=== PATIENT | female | born 1965 | race Hispanic/Latino ===

== ENCOUNTER 2022-06-10 00:39 | Emergency (ER) | payer BC, SELFPAY ==
[2022-06-10 01:23] LABS: Bilirubin Negative (Negative); Blood, Urine Negative (Negative); Clarity Clear (Clear); Glucose, Urine (Dipstick) Negative (Negative); Ketone, Urine Negative (Negative); Leukocyte Negative (Negative); Nitrite Negative (Negative); Protein, Urine (Dipstick) Negative (Neg-Trace); Urobilinogen 0.2 mg/dL (Less than 2)
[2022-06-10] MEDS ORDERED: Sodium Chloride 0.9% 100 ML ONE (01:30)
[2022-06-10] MEDS ORDERED: Morphine 2 MG/ML VIAL ONE (01:30)
[2022-06-10] MEDS ORDERED: Sodium Chloride 0.9% 2,000 ML ONE (01:30)
[2022-06-10] MEDS ORDERED: Promethazine HCl 25 MG/ML VIAL ONE (01:30)
[2022-06-10 01:47] LABS: ALT (SGPT) 28 U/L (8-55); AST (SGOT) 28 U/L (5-34); Albumin 3.9 g/dL (3.5-5.0); Alkaline Phosphatase 72 U/L (40-110); Anion Gap 19 mmol/L (10-20); BUN (Urea Nitrogen) 7 mg/dL (9.8-20.1); Bilirubin, Total 0.5 mg/dL (0.2-1.2); Calc. Creatinine Clearance 0 mL/min (70-130); Calcium 8.4 mg/dL (7.8-10.44); Carbon Dioxide 22 mmol/L (22-29); Chloride 102 mmol/L (98-107); Estimated GFR 102; Globulin 3.1 g/dL (2.4-3.5); Glucose 80 mg/dL (70-105); Lipase 69 U/L (8-78); Potassium 3.1 mmol/L (3.5-5.1); Sodium 140 mmol/L (136-145)
[2022-06-10 01:52] LABS: INR-International Normal Ratio 0.9; Prothrombin Time 12.5 sec (12.0-14.7)
[2022-06-10 01:53] LABS: PTT 29.8 sec (22.9-36.1)
[2022-06-10 02:11] LABS: Band 3 % (5-11); Eosinophils 4 % (0-10); Hemoglobin 12.9 g/dL (12.0-16.0); Lymphocytes 35 % (21-51); MDiff Complete? YES; Mean Corpuscular HGB CONC 33.7 g/dL (32.0-36.0); Mean Corpuscular Hemoglobin 31.1 pg (27.0-31.0); Mean Corpuscular Volume 92.3 fL (78.0-98.0); Mean Platelet Volume 11.4 fL (7.4-10.4); Monocytes 21 % (0-10); Myelocyte 12 % (0-0); Neutrophil 25 % (42-75); Platelet Count 209 thou/uL (130-400); RBC Distribution Width 11.8 % (11.5-14.5); Red Blood Cell (RBC) Count 4.13 mill/uL (4.20-5.40); White Blood Cell (WBC) Count 6.9 thou/uL (4.8-10.8)
[2022-06-10] MEDS ORDERED: Amoxicillin/Potassium Clav 875 MG TAB ONE (03:49)
[2022-06-10] MEDS ORDERED: Iopamidol 370 76% 50 ML VIAL FS ONE (09:00)
== END 2022-06-10 04:10 | disposition home or self-care (01) ==
LOC: NAV ERS 00:39
DX: K57.32 Diverticulitis of large intestine without perforation or abscess without bleeding (principal); E03.9 Hypothyroidism, unspecified; Z79.899 Other long term (current) drug therapy
CPT/HCPCS: 74177; 80053; 81003; 83605; 83690; 85025; 85610; 85730; 86850; 86900; 86901; 96361; 96365; 96375; J2270; J2550; J7050; Q9967